=== PATIENT | male | born 1940 | race Caucasian/White ===

== ENCOUNTER 2023-11-30 09:34 | Observation (INO) ==
[2023-11-30 10:18] LABS: ABS Lymphocytes 0.5 10^3/uL (1.0-4.8); ABS Monocytes 0.5 10^3/uL (0.0-1.1); ABS Neutrophils 17.1 10^3/uL (1.5-7.6); Eosinophil % 0.1 %; Hemoglobin 13.1 g/dL (13.2-16.3); Mean Corpuscular Hemoglobin 28.9 pg (27-33); Mean Corpuscular Hgb Conc 32.8 g/dL (31-36); Mean Corpuscular Volume 88.3 fL (80-97); Mean Platelet Volume 8.6 fL (7.5-11.2); Platelet Count 187 10^3/uL (150-450); Red Blood Count 4.53 10^6/uL (4.06-5.63); Red Cell Distribution Width 13.9 % (12-17); White Blood Count 18.2 10^3/uL (3.6-10.2)
[2023-11-30 11:21] LABS: Albumin 3.5 g/dL (3.2-5.2); Albumin/Globulin Ratio 1.3 (1-3); Calcium 8.9 mg/dL (8.6-10.3); Creatinine, Serum 1.85 mg/dL (0.67-1.17); Globulin 2.6 g/dL (2-4); Potassium 3.8 mmol/L (3.5-5.0); Total Bilirubin 1.3 mg/dL (0.2-1.0); Total Protein 6.1 g/dL (6.4-8.9); eGFR CKD-EPI 36.1 (>60)
[2023-11-30 11:58] LABS: C Reactive Protein 221.05 mg/L (<8.01)
[2023-11-30] MEDS: Iodixanol 320 (CONTRAST) 100 ML SDV IV ONE (13:42)
[2023-11-30] MEDS: cefTRIAXone 1 gm/50 mL D5W 1 GM/50 ML BAG IV ONE ×2 (14:18→17:35)
[2023-11-30] MEDS: metroNIDAZOLE IV 500 MG/100ML 500 MG/100 ML BAG IVPB ONE (15:01)
[2023-11-30] MEDS ORDERED: Zosyn per Pharmacy NOTE FOLLOW UP SCH (17:00)
[2023-11-30] MEDS: metroNIDAZOLE IV 500 MG/100ML 100 ML IVPB SCH (19:01)
[2023-12-01] MEDS: metroNIDAZOLE IV 500 MG/100ML 100 ML IVPB SCH (01:47)
[2023-12-01 07:01] LABS: ABS Basophils 0.1 10^3/uL (0.0-0.1); ABS Eosinophils 0.2 10^3/uL (0.0-0.5); ABS Lymphocytes 0.9 10^3/uL (1.0-4.8); ABS Monocytes 0.7 10^3/uL (0.0-1.1); ABS Neutrophils 10.4 10^3/uL (1.5-7.6); ABS Nucleated RBC 0.01 10^3/ul; Eosinophil % 1.8 %; Hematocrit 36.9 % (38-53); Hemoglobin 12.3 g/dL (13.2-16.3); Lymphocyte % 7.3 %; Mean Corpuscular Hemoglobin 29.3 pg (27-33); Mean Corpuscular Hgb Conc 33.4 g/dL (31-36); Mean Corpuscular Volume 87.6 fL (80-97); Nucleated Red Blood Cells % 0.1 %/100WBC (0.0-0.8); Platelet Count 162 10^3/uL (150-450); Red Blood Count 4.21 10^6/uL (4.06-5.63); White Blood Count 12.3 10^3/uL (3.6-10.2)
[2023-12-01 07:26] LABS: C Reactive Protein 174.95 mg/L (<8.01); Calcium 8.3 mg/dL (8.6-10.3); Creatinine, Serum 1.76 mg/dL (0.67-1.17); Magnesium 1.7 mg/dL (1.9-2.7); Potassium 3.8 mmol/L (3.5-5.0); eGFR CKD-EPI 38.4 (>60)
[2023-12-01] MEDS: Magnesium Sulfate 2 gm BAG 2 GM/50 ML BAG IVPB ONE (09:49)
[2023-12-01] MEDS: Aspirin EC 81 mg TAB.EC (enteric coated) PO SCH (09:49)
[2023-12-01] MEDS: cefTRIAXone 2 gm/50 mL D5W 2 GM/50 ML BAG IV SCH (13:59)
[2023-12-01] MEDS ORDERED: cefTRIAXone 2 gm/50 mL D5W 2 GM/50 ML BAG IV SCH (14:00)
[2023-12-01] MEDS: Enoxaparin 30 MG/0.3 ML SYR SUBCUT SCH (20:40)
[2023-12-02 08:28] LABS: ABS Basophils 0.1 10^3/uL (0.0-0.1); ABS Eosinophils 0.2 10^3/uL (0.0-0.5); ABS Lymphocytes 1.2 10^3/uL (1.0-4.8); ABS Nucleated RBC 0.01 10^3/ul; Eosinophil % 1.4 %; Hematocrit 40.3 % (38-53); Hemoglobin 13.4 g/dL (13.2-16.3); Lymphocyte % 8.6 %; Mean Corpuscular Hemoglobin 29.3 pg (27-33); Mean Corpuscular Hgb Conc 33.3 g/dL (31-36); Mean Platelet Volume 9.2 fL (7.5-11.2); Nucleated Red Blood Cells % 0.1 %/100WBC (0.0-0.8); Platelet Count 211 10^3/uL (150-450); Red Blood Count 4.58 10^6/uL (4.06-5.63); White Blood Count 13.5 10^3/uL (3.6-10.2)
[2023-12-02 08:53] LABS: Calcium 8.4 mg/dL (8.6-10.3); Creatinine, Serum 1.73 mg/dL (0.67-1.17); Potassium 3.6 mmol/L (3.5-5.0); eGFR CKD-EPI 39.2 (>60)
[2023-12-02 09:39] VITALS: BP 142/83
== END 2023-12-02 11:40 | disposition home or self-care (01) ==
LOC: EDHOLD 09:34 → ED 09:34 → MED 20:53
PROVIDERS: ADMIT Internal Medicine; ATTEND Internal Medicine